=== PATIENT | female | born 1950 | race Caucasian/White ===

== ENCOUNTER 2019-07-31 00:18 | Emergency (ER) | payer MEDICARE, OTHER ==
[2019-07-31] MEDS ORDERED: FAMOTIDINE 20MG TAB 20 MG TAB ONE (00:45)
[2019-07-31] MEDS ORDERED: DIPHENHYDRAMINE HCL 25 MG CAPSULE ONE (00:46)
== END 2019-07-31 02:36 | disposition home or self-care (01) ==
LOC: EDH 00:18
DX: L50.9 Urticaria, unspecified (principal); T78.40XA Allergy, unspecified, initial encounter; E11.9 Type 2 diabetes mellitus without complications; I10 Essential (primary) hypertension; E78.00 Pure hypercholesterolemia, unspecified; K21.9 Gastro-esophageal reflux disease without esophagitis; Z88.0 Allergy status to penicillin; Z88.2 Allergy status to sulfonamides; X58.XXXA Exposure to other specified factors, initial encounter
CPT/HCPCS: 82948; 99283; Q0163

== ENCOUNTER 2022-06-07 18:51 | Emergency (ER) | payer MEDICARE ==
[~2022-06-07] VITALS: Ht 152.4 cm; Wt 72.6 kg
[2022-06-07 20:49] VITALS: BP 160/95
[2022-06-07] MEDS ORDERED: MORPHINE 4 MG SYG IM ONE (21:00)
[2022-06-07] MEDS ORDERED: DICL50TA9 PO (21:14)
== END 2022-06-07 21:35 | disposition home or self-care (01) ==
LOC: EDH 18:51
DX: M25.551 Pain in right hip (principal); I10 Essential (primary) hypertension; E11.9 Type 2 diabetes mellitus without complications; E78.00 Pure hypercholesterolemia, unspecified; Z90.49 Acquired absence of other specified parts of digestive tract; Z88.0 Allergy status to penicillin; Z88.2 Allergy status to sulfonamides
CPT/HCPCS: 99283; 73502; 96372; J2270